=== PATIENT | female | born 1975 ===

== ENCOUNTER 2017-04-25 17:00 | Emergency (ER) | payer BC, OTHER ==
[2017-04-25 17:12] VITALS: RESP 18; O2SAT 97
[2017-04-25] MEDS ORDERED: Bacitracin 500 Units/gm Oint Foilpak UD TOP ONE (17:31)
[2017-04-25] MEDS ORDERED: Bacitracin 500 Units/gm Oint Foilpak UD ONE (17:43)
--- NOTE | 2017-04-25 17:54 | C.PDOC ---
Time Seen by Provider: 04/25/17 17:16 Chief Complaint (Nursing): Abnormal Skin Integrity History Per: Patient Onset/Duration Of Symptoms: Days Ago (3), Abscess Current Symptoms Are (Timing): Worse Location Of Injury: Left: Face (Cheek) Quality Of Symptoms: Painful, Swollen Severity: Moderate Additional History Per: Prior Records Past Medical History Reviewed: Historical Data, Nursing Documentation, Vital Signs Vital Signs: Last Vital Signs Temp 98.4 F 04/25/17 17:09 Pulse 60 04/25/17 17:09 Resp 18 04/25/17 17:09 BP 100/67 04/25/17 17:09 Pulse Ox 97 04/25/17 17:54 - Medical History PMH: Anemia, Asthma - [facility] Procedures INJECT/INFUSE NEC (04/02/14) Family History: States: Unknown Family Hx - Social History Hx Alcohol Use: No Hx Substance Use: No - Immunization History Hx Tetanus Toxoid Vaccination: No Hx Influenza Vaccination: No Hx Pneumococcal Vaccination: No Review Of Systems Except As Marked, All Systems Reviewed And Found Negative. Constitutional: Negative for: Weakness ENT: Negative for: Mouth Pain, Mouth Swelling, Throat Pain, Throat Swelling Cardiovascular: Negative for: Chest Pain Respiratory: Negative for: Shortness of Breath Gastrointestinal: Negative for: Vomiting, Abdominal Pain Musculoskeletal: Negative for: Neck Pain Neurological: Negative for: Weakness, Numbness Physical Exam - Physical Exam Appears: Non-toxic, No Acute Distress Skin: Warm, Dry, Other (Abscess on left cheek, pointing) Head: Atraumatic, Normacephalic Eye(s): bilateral: Normal Inspection, PERRL, EOMI Oral Mucosa: Moist, No Drooling, No Trismus Gingiva: No Abscess Throat: Normal Neck: Normal ROM, Supple Lymphatic: No Adenopathy Cardiovascular: Rhythm Regular Respiratory: Normal Breath Sounds, No Accessory Muscle Use Gastrointestinal/Abdominal: Soft, No Tenderness Extremity: Normal ROM Neurological/Psych: Oriented x3, Normal Speech, Normal Motor, Normal Sensation ED Course And Treatment O2 Sat by Pulse Oximetry: 97 Pulse Ox Interpretation: Normal Disposition Counseled Patient/Family Regarding: Studies Performed, Diagnosis, Need For Followup, Rx Given - Disposition Referrals: David Jeff MD [Staff Provider] - Disposition: HOME/ ROUTINE Disposition Time: 17:57 Condition: IMPROVED Additional Instructions: Follow up with your doctor within 2-3 days. Return to the ER if you develop fever, worsening of symptoms or if you have any other concerns. Prescriptions: Clindamycin [Cleocin] 300 mg PO QID #40 cap Instructions: Abscess (ED) Forms: [facility] ([employer]ym[employer]) - Clinical Impression Clinical Impression: Facial abscess - Incision & Drainage Of Abscess Prep Used: Betadine Procedure: Drained Pus (No incision was made. Abscess started draining spontaneously. ), Cultures Obtained And Sent To Lab
[2017-04-25 18:08] VITALS: BP 121/79; TEMP 97.6
[2017-04-25 18:11] VITALS: PULSE 59
== END 2017-04-25 18:07 | disposition home or self-care (01) ==
LOC: C.ER 17:00
DX: L02.01 Cutaneous abscess of face (principal)

== ENCOUNTER 2018-01-03 14:05 | Emergency (ER) | payer MEDICAID, OTHER ==
[2018-01-03 14:28] VITALS: RESP 18
[2018-01-03] MEDS ORDERED: Sodium Chloride 0.9% 1,000 ML IV ONE (15:41)
--- NOTE | 2018-01-03 15:47 | C.PDOC ---
History Of Present Illness 42-year-old female presents to the emergency department with complaints of left sided abdominal pain since yesterday, associated with fever/chills, nausea, and non-bloody/non-bilious vomiting. Patient also reports episode of hematuria. She denies any diarrhea, vaginal bleeding/discharge. Time Seen by Provider: 01/03/18 15:21 Chief Complaint (Nursing): Abdominal Pain History Per: Patient History/Exam Limitations: no limitations Current Symptoms Are (Timing): Still Present Severity: Mild Past Medical History Reviewed: Historical Data, Nursing Documentation, Vital Signs Vital Signs: Last Vital Signs Temp 98.7 F 01/03/18 18:30 Pulse 57 L 01/03/18 18:30 Resp 18 01/03/18 18:30 BP 125/72 01/03/18 18:30 Pulse Ox 98 01/03/18 18:30 - Medical History PMH: Anemia, Asthma Surgical History: - [facility] Procedures INJECT/INFUSE NEC (04/02/14) Family History: States: No Known Family Hx - Social History Hx Alcohol Use: No Hx Substance Use: No - Immunization History Hx Tetanus Toxoid Vaccination: No Hx Influenza Vaccination: No Hx Pneumococcal Vaccination: No Review Of Systems Constitutional: Positive for: Fever, Chills Cardiovascular: Negative for: Chest Pain Respiratory: Negative for: Shortness of Breath Gastrointestinal: Positive for: Nausea, Vomiting. Negative for: Diarrhea Genitourinary: Positive for: Hematuria. Negative for: Dysuria, Vaginal Discharge, Vaginal Bleeding Physical Exam - Physical Exam Appears: Well, Non-toxic, Other (in mild pain ) Skin: Normal Color, Warm, Dry, No Rash Head: Normacephalic Eye(s): bilateral: Normal Inspection Oral Mucosa: Moist Cardiovascular: Rhythm Regular Respiratory: Normal Breath Sounds, No Rales, No Rhonchi, No Wheezing Gastrointestinal/Abdominal: Bowel Sounds, Soft, Tenderness (LUQ mild TTP), No Guarding, No Rebound Back: No CVA Tenderness Extremity: Normal ROM, No Deformity, No Swelling Neurological/Psych: Oriented x3 ED Course And Treatment - Laboratory Results Result Diagrams: 01/03/18 15:50 01/03/18 15:50 O2 Sat by Pulse Oximetry: 98 (RA) Pulse Ox Interpretation: Normal Progress Note: Bloodwork, UA, Upreg ordered and reviewed. Patient given IV NS bolus, IV Toradol. Reevaluation Time: 18:15 Reassessment Condition: Improved (Patient reassessed, is resting comfortably, in no pain/distress. On exam, abdomen is soft and nontender. Blood work shows elevation in Cr (1.9), otherwise was unremarkable. UA shows UTI. Patient given PO Ciprofloxacin, and Rx for Cipro and Tramadol. She was instructed to follow up with PMD/clinic in 1-2 days, and understands she should return to ED if symptoms worsen.) Disposition Counseled Patient/Family Regarding: Studies Performed, Diagnosis, Need For Followup, Rx Given - Disposition Referrals: David Jeff MD [Staff Provider] - Disposition: HOME/ ROUTINE Disposition Time: 18:15 Condition: STABLE Additional Instructions: FOLLOW UP WITH YOUR DOCTOR IN 1-2 DAYS USE MEDICATION DIRECTED RETURN TO ER IF SYMPTOMS WORSEN Prescriptions: Ciprofloxacin [Cipro] 1 tab PO BID #14 tab traMADol [Ultram] 50 mg PO BID PRN #12 tab PRN Reason: pain Instructions: Urinary Tract Infection, Adult (DC) Forms: [employer] (Danish) - Clinical Impression Clinical Impression: UTI (urinary tract infection) - Scribe Statement The provider has reviewed the documentation as recorded by the Scribe (Tonie Aguilar) All medical record entries made by the Scribe were at my direction and personally dictated by me. I have reviewed the chart and agree that the record accurately reflects my personal performance of the history, physical exam, medical decision making, and the department course for this patient. I have also personally directed, reviewed, and agree with the discharge instructions and disposition.
[2018-01-03] MEDS ORDERED: Sodium Chloride 0.9% 0 ML ONE (15:51)
[2018-01-03 16:01] LABS: BASO # 0.1 K/uL (0.0-0.2); BASO % 0.5 % (0.0-2.0); EOS # 0.2 K/uL (0.0-0.7); EOS % 1.5 % (0.0-4.0); HEMOGLOBIN 13.1 g/dL (11.0-16.0); LYMPH # 2.2 K/uL (1.0-4.3); MEAN CELL VOLUME 90.9 fL (81.0-99.0); MEAN CORPUSCULAR HEMOGLOBIN 30.9 pg (27.0-31.0); MEAN PLATELET VOLUME 8.8 fL (7.2-11.7); MONO % 10.2 % (0.0-10.0); NEUT # 6.6 K/uL (1.8-7.0); NEUT % 65.8 % (50.0-75.0); NRBC % 0.1 % (0.0-2.0); RBC 4.24 Mil/uL (3.80-5.20); RED CELL DISTRIBUTION WIDTH 13.4 % (11.5-14.5)
[2018-01-03] MEDS ORDERED: Sodium Chloride 0.9% 1,000 ML ONE (16:02)
[2018-01-03 16:03] LABS: WHITE BLOOD COUNT 10.1 K/uL (4.8-10.8)
[2018-01-03 16:36] LABS: SQUAMOUS EPITHIAL 1 /hpf (0-5); URINE BACTERIA OCC (<OCC); URINE BILIRUBIN NEGATIVE (NEGATIVE); URINE BLOOD 1+ (NEGATIVE); URINE CLARITY Clear (Clear); URINE COLOR Straw (YELLOW); URINE GLUCOSE (UA) NORMAL (Normal); URINE LEUKOCYTE ESTERASE 2+ Leu/uL (Negative); URINE PROTEIN NEGATIVE (NEGATIVE); URINE UROBILINOGEN NORMAL mg/dL (0.2-1.0)
[2018-01-03 16:37] LABS: HCG,QUALITATIVE URINE NEGATIVE (NEGATIVE)
[2018-01-03 16:52] LABS: ALB/GLOB RATIO 1.4 (1.0-2.1); CALCIUM 9.4 mg/dl (8.6-10.4)
[2018-01-03 17:13] VITALS: PULSE 57
[2018-01-03 17:36] VITALS: O2SAT 98
[2018-01-03 18:33] VITALS: BP 125/72; TEMP 98.7
== END 2018-01-03 18:34 | disposition home or self-care (01) ==
LOC: C.ER 14:05
DX: N39.0 Urinary tract infection, site not specified (principal)
CPT/HCPCS: 80053; 81001; 83690; 84703; 85025; 87086; 96374; 99284; J1885; J7040

== ENCOUNTER 2018-01-29 11:22 | Emergency (ER) | payer MEDICAID, OTHER ==
[2018-01-29] MEDS ORDERED: Sodium Chloride 0.9% 1,000 ML IV ONE (12:13)
[2018-01-29] MEDS ORDERED: Sodium Chloride 0.9% 1,000 ML ONE (12:26)
[2018-01-29 12:36] LABS: BASO % 0.7 % (0.0-2.0); EOS # 0.3 K/uL (0.0-0.7); EOS % 4.9 % (0.0-4.0); HEMOGLOBIN 12.6 g/dL (11.0-16.0); LYMPH # 2.3 K/uL (1.0-4.3); LYMPH % 34.8 % (20.0-40.0); MEAN CELL VOLUME 90.6 fL (81.0-99.0); MEAN CORPUSCULAR HEMOGLOBIN 30.9 pg (27.0-31.0); MEAN CORPUSCULAR HGB CONC 34.1 g/dL (33.0-37.0); MEAN PLATELET VOLUME 8.6 fL (7.2-11.7); MONO # 0.4 K/uL (0.0-0.8); MONO % 5.9 % (0.0-10.0); NEUT # 3.6 K/uL (1.8-7.0); NEUT % 53.7 % (50.0-75.0); RBC 4.08 Mil/uL (3.80-5.20); RED CELL DISTRIBUTION WIDTH 13.6 % (11.5-14.5); WHITE BLOOD COUNT 6.7 K/uL (4.8-10.8)
[2018-01-29 13:02] LABS: SQUAMOUS EPITHIAL 3 /hpf (0-5); URINE BACTERIA FEW (<OCC); URINE BILIRUBIN NEGATIVE (NEGATIVE); URINE BLOOD 2+ (NEGATIVE); URINE CLARITY Hazy (Clear); URINE COLOR Yellow (YELLOW); URINE GLUCOSE (UA) NORMAL (Normal); URINE LEUKOCYTE ESTERASE 3+ Leu/uL (Negative); URINE PROTEIN NEGATIVE (NEGATIVE); URINE UROBILINOGEN NORMAL mg/dL (0.2-1.0)
[2018-01-29 13:03] LABS: HCG,QUALITATIVE URINE NEGATIVE (NEGATIVE)
[2018-01-29 13:06] LABS: ALB/GLOB RATIO 1.4 (1.0-2.1); ALBUMIN 3.8 g/dL (3.5-5.0); ALT/SGPT 20 U/L (9-52); AST/SGOT 16 U/L (14-36); BLOOD UREA NITROGEN 11 mg/dL (7-17); CALCIUM 9.2 mg/dl (8.6-10.4); GFR AFRICAN-AMERICAN > 60; GFR NON-AFRICAN AMERICAN > 60; LIPASE 45 U/L (23-300)
[2018-01-29] MEDS ORDERED: Iodixanol 320 MG/ML 100 ML BOTTLE IV ONE (13:10)
[2018-01-29 13:50] VITALS: RESP 18
--- NOTE | 2018-01-29 14:49 | C.PDOC ---
History Of Present Illness 42yo female, presents to ED with complaints of epigastric abdominal pain after she used Tramadol for the first time. She now complains of pain in her lower abdomen, associated with 2 episodes of non-bloody non-bilious vomiting. She denies any nausea, blood in her stool, hematuria, dysuria, dark stool, vaginal bleeding or discharge. She offers no other medical complaints. PMD: Adan Olea MD Time Seen by Provider: 01/29/18 12:13 Chief Complaint (Nursing): Abdominal Pain History Per: Patient History/Exam Limitations: no limitations Current Symptoms Are (Timing): Still Present Location Of Pain/Discomfort: RLQ, Epigastric, LLQ Associated Symptoms: Vomiting. denies: Fever, Chills, Nausea, Diarrhea, Back Pain, Chest Pain, Constipation, Urinary Symptoms Abnormal Vaginal Bleeding: No Past Medical History Reviewed: Historical Data, Nursing Documentation, Vital Signs Vital Signs: Last Vital Signs Temp 98.3 F 01/29/18 15:30 Pulse 60 01/29/18 15:30 Resp 18 01/29/18 15:30 BP 105/63 01/29/18 15:30 Pulse Ox 99 01/29/18 17:29 - Medical History PMH: Anemia, Asthma Denies: Chronic Kidney Disease Surgical History: - [facility] Procedures INJECT/INFUSE NEC (04/02/14) Family History: States: No Known Family Hx, Unknown Family Hx - Social History Hx Alcohol Use: No Hx Substance Use: No - Immunization History Hx Tetanus Toxoid Vaccination: No Hx Influenza Vaccination: No Hx Pneumococcal Vaccination: No Review Of Systems Except As Marked, All Systems Reviewed And Found Negative. Constitutional: Negative for: Fever, Chills Cardiovascular: Negative for: Chest Pain Respiratory: Negative for: Shortness of Breath Gastrointestinal: Positive for: Vomiting, Abdominal Pain. Negative for: Nausea , Diarrhea, Constipation, Melena, Hematochezia, Hematemesis Genitourinary: Negative for: Dysuria, Hematuria, Vaginal Discharge, Vaginal Bleeding Physical Exam - Physical Exam Appears: Non-toxic, No Acute Distress Skin: Normal Color, Warm, Dry Head: Atraumatic, Normacephalic Eye(s): bilateral: Normal Inspection Oral Mucosa: Moist Neck: Normal ROM, Supple Chest: Symmetrical Cardiovascular: Rhythm Regular Respiratory: Normal Breath Sounds Gastrointestinal/Abdominal: Soft, Tenderness (lower abdomen tenderness, diffuse abdominal tenderness) Back: Normal Inspection Extremity: Normal ROM, No Pedal Edema Neurological/Psych: Oriented x3 ED Course And Treatment - Laboratory Results Result Diagrams: 01/29/18 12:29 01/29/18 12:29 O2 Sat by Pulse Oximetry: 99 (RA) Pulse Ox Interpretation: Normal Medical Decision Making Medical Decision Making: Impression: Abdominal pain Plan: -- Labs -- IV Fluids -- Pepcid 20mg PO -- Urinalysis -- CT Abdomen/Pelvis Progress: CT FINDINGS: LOWER THORAX: Stable benign subpleural nodule 3.5 mm with a linear atelectasis or fibrosis at the left base. LIVER: In interval 14 mm lucency seen at the dome of liver posteriorly trace representing a benign hemangioma. A tiny lucency at the dome of the liver anteriorly, too small to characterize. Diminished attenuation throughout the liver suggests mild hepatic steatosis. No definite intrahepatic biliary dilatation. GALLBLADDER AND BILE DUCTS: Unremarkable. PANCREAS: Unremarkable. No gross lesion or ductal dilatation. SPLEEN: Unremarkable. ADRENALS: Unremarkable. No mass. KIDNEYS AND URETERS: Unremarkable. No hydronephrosis. No solid mass. VASCULATURE: Unremarkable. No aortic aneurysm. BOWEL: No bowel obstruction is evident with fluid mildly distending the stomach which is nonfocal as imaged. Mild submucosal left colonic lucency may indicate chronic inflammatory bowel process. No acute pericolic reaction although distal left colonic diverticular are identified without definitive diverticulitis pattern. APPENDIX: Normal appendix. PERITONEUM: Unremarkable. No free fluid. No free air. LYMPH NODES: Unremarkable. No enlarged lymph nodes. BLADDER: Distended but thin and smooth walled. No radiodense urolithiasis or mural nodularity. REPRODUCTIVE: Unremarkable. BONES: No acute fracture. OTHER FINDINGS: None. IMPRESSION: 1. Sigmoid diverticulosis without diverticulitis. Potential left colonic inflammatory bowel changes on a chronic basis. No definitive acute bowel findings. Study limited due lack of oral contrast administration. 2. Mild hepatic steatosis. 3. 14 mm lucency dome liver. Follow-up elective MRI is advised without contrast including time dependent contrast-enhanced imaging. 4. No bowel, urinary tract obstruction, free intrarenal gas or ascites appreciated. No mesenteric edema. Disposition - Disposition Referrals: [facility] [Outside] [facility] [Outside] Disposition: HOME/ ROUTINE Disposition Time: 15:00 Condition: IMPROVED Additional Instructions: Thank you for letting us take care of you today. The emergency medical care you received today was directed at your acute symptoms. If you were prescribed any medication, please fill it and take as directed. It may take several days for your symptoms to resolve. Return to the Emergency Department if your symptoms worsen, do not improve, or if you have any other problems. Please contact your doctor or call one of the physicians/clinics you have been referred to that are listed on the Patient Visit Information form that is included in your discharge packet. Bring any paperwork you were given at discharge with you along with any medications you are taking to your follow up visit. Our treatment cannot replace ongoing medical care by a primary care provider (PCP) outside of the emergency department. Thank you for allowing the [facility] team to be part of your care today. Follow up in the clinic or with your primary doctor for outpatient care. Prescriptions: Ibuprofen [Motrin] 600 mg PO Q6 PRN #20 tab PRN Reason: Pain, Moderate (4-7) Sulfamethoxazole/Trimethoprim [Bactrim DS 800 mg-160 mg] 1 tab PO BID #10 tab Instructions: Urinary Tract Infection, Adult (DC) Forms: [employer] ([employer]), Work Excuse - Clinical Impression Clinical Impression: Gastritis - Scribe Statement The provider has reviewed the documentation as recorded by the Scribe (Michelle Rosas) Provider Attestation: All medical record entries made by the Scribe were at my direction and personally dictated by me. I have reviewed the chart and agree that the record accurately reflects my personal performance of the history, physical exam, medical decision making, and the department course for this patient. I have also personally directed, reviewed, and agree with the discharge instructions and disposition.
--- NOTE | 2018-01-29 15:06 | CT ---
PROCEDURE: CT Abdomen and Pelvis with contrast HISTORY: lower abd pain COMPARISON: Abdomen pelvis CT without contrast 01/03/2012. TECHNIQUE: Contrast dose: Visipaque 320, 100 cc. Radiation dose: Total exam DLP = 300.98 mGy-cm. This CT exam was performed using one or more of the following dose reduction techniques: Automated exposure control, adjustment of the mA and/or kV according to patient size, and/or use of iterative reconstruction technique. FINDINGS: LOWER THORAX: Stable benign subpleural nodule 3.5 mm with a linear atelectasis or fibrosis at the left base. LIVER: In interval 14 mm lucency seen at the dome of liver posteriorly trace representing a benign hemangioma. A tiny lucency at the dome of the liver anteriorly, too small to characterize. Diminished attenuation throughout the liver suggests mild hepatic steatosis. No definite intrahepatic biliary dilatation. GALLBLADDER AND BILE DUCTS: Unremarkable. PANCREAS: Unremarkable. No gross lesion or ductal dilatation. SPLEEN: Unremarkable. ADRENALS: Unremarkable. No mass. KIDNEYS AND URETERS: Unremarkable. No hydronephrosis. No solid mass. VASCULATURE: Unremarkable. No aortic aneurysm. BOWEL: No bowel obstruction is evident with fluid mildly distending the stomach which is nonfocal as imaged. Mild submucosal left colonic lucency may indicate chronic inflammatory bowel process. No acute pericolic reaction although distal left colonic diverticular are identified without definitive diverticulitis pattern. APPENDIX: Normal appendix. PERITONEUM: Unremarkable. No free fluid. No free air. LYMPH NODES: Unremarkable. No enlarged lymph nodes. BLADDER: Distended but thin and smooth walled. No radiodense urolithiasis or mural nodularity. REPRODUCTIVE: Unremarkable. BONES: No acute fracture. OTHER FINDINGS: None. IMPRESSION: 1. Sigmoid diverticulosis without diverticulitis. Potential left colonic inflammatory bowel changes on a chronic basis. No definitive acute bowel findings. Study limited due lack of oral contrast administration. 2. Mild hepatic steatosis. 3. 14 mm lucency dome liver. Follow-up elective MRI is advised without contrast including time dependent contrast-enhanced imaging. 4. No bowel, urinary tract obstruction, free intrarenal gas or ascites appreciated. No mesenteric edema.
[2018-01-29 15:37] VITALS: BP 105/63; PULSE 60; TEMP 98.3
[2018-01-29 17:30] VITALS: O2SAT 99
== END 2018-01-29 15:39 | disposition home or self-care (01) ==
LOC: C.ER 11:22
DX: K29.70 Gastritis, unspecified, without bleeding (principal)
CPT/HCPCS: 74177; 80053; 81001; 83690; 84703; 85025; 87086; 96360; 99285; J7030; Q9967